=== PATIENT | male | born 1995 | race African-American/Black ===

== ENCOUNTER 2016-12-31 08:32 | Emergency (ER) | payer SELFPAY ==
[~2016-12-31] VITALS: Ht 172.7 cm; Wt 77.0 kg
[2016-12-31 10:26] VITALS: BP 124/70
== END 2016-12-31 10:29 | disposition home or self-care (01) ==
LOC: ER 09:01
DX: J06.9 Acute upper respiratory infection, unspecified (principal); F17.210 Nicotine dependence, cigarettes, uncomplicated; F12.10 Cannabis abuse, uncomplicated; Z98.890 Other specified postprocedural states
CPT/HCPCS: 99283

== ENCOUNTER 2021-07-15 20:19 | Emergency (ER) | payer SELFPAY ==
[~2021-07-15] VITALS: Ht 172.7 cm; Wt 79.0 kg
[2021-07-15 20:51] VITALS: BP 125/83
[2021-07-15] MEDS ORDERED: PIPERACILLIN/TAZ 3.375G PREMIX 50 ML IV ONE (21:45)
[2021-07-15] MEDS ORDERED: VANCOMYCIN 1G PREMIX 200 ML IV ONE (21:45)
[2021-07-15] MEDS ORDERED: AMOX-424 MT (22:06)
[2021-07-15] MEDS ORDERED: IBUPROFEN 600MG TABLET PO ONE (22:15)
== END 2021-07-15 22:20 | disposition left against medical advice (07) ==
LOC: ER 20:19
DX: L03.213 Periorbital cellulitis (principal); F12.10 Cannabis abuse, uncomplicated
CPT/HCPCS: 99281

== ENCOUNTER 2021-10-31 12:38 | Emergency (ER) | payer MEDICAID ==
[~2021-10-31] VITALS: Ht 167.6 cm; Wt 73.0 kg
[~2021-10-31 12:38] MED LIST: AMOX-424 MT
[2021-10-31] MEDS ORDERED: MORPHINE SULFATE 4 MG/ML CPJ (NOT FOR IM USE) IV ONE (12:45)
[2021-10-31] MEDS ORDERED: SODIUM CHLORIDE 0.9% 1,000 ML IV ONE ×2 (12:45)
[2021-10-31] MEDS ORDERED: TETANUS, DIPHTHERIA, PERTUSSIS VAC/PF 0.5ML (>10YR OLD) IM ONE (12:45)
[2021-10-31] MEDS ORDERED: ONDANSETRON HCL 4MG/2ML INJ IV ONE (13:00)
[2021-10-31 13:13] LABS: BASOPHILS % 0.4 % (0.0-2.0); EOSINOPHILS % 0.1 % (0.0-5.0); HEMATOCRIT. 33.7 % (42.0-52.0); HEMOGLOBIN. 11.4 g/dL (14.0-18.0); LYMPHOCYTES % 15.3 % (20.0-50.0); MEAN CORPUSCULAR HEMOGLOBIN 27.2 pg (28.0-32.0); MEAN CORPUSCULAR VOLUME 80.7 fL (80.0-94.0); MEAN PLATELET VOLUME 8.8 fl (7.4-10.4); MONOCYTES % 4.8 % (2.0-8.0); NEUTROPHILS % 79.4 % (40.0-76.0); PLATELET 184 x1000/uL (130-400); RED BLOOD CELL COUNT 4.18 mill/uL (4.7-6.1); RED CELL DISTRIBUTION WIDTH 16.9 % (11.6-14.6)
[2021-10-31 13:20] LABS: CHLORIDE 101 mEq/L (98-107)
[2021-10-31 13:24] LABS: PROTHROMBIN TIME 11.2 sec (9.6-11.0)
[2021-10-31 13:35] LABS: ETHANOL BLOOD < 10 mg/dL
[2021-10-31] MEDS ORDERED: HYDROMORPHONE HCL/PF 2MG/ML CPJ IV ONE ×2 (13:45)
[2021-10-31] MEDS ORDERED: MIDAZOLAM HCL 2 MG/2 ML VIAL IM ONE (13:45)
[2021-10-31] MEDS ORDERED: DIPHENHYDRAMINE 50MG/ML VIAL IV ONE (13:45)
[2021-10-31] MEDS ORDERED: HALOPERIDOL LACTATE 5MG/ML VIAL IM ONE (13:45)
[2021-10-31] MEDS ORDERED: LIDOCAINE HCL/EPINEPHRINE 1%-EPI 1:100,000 50 ML VIAL INFIL ONE (14:15)
[2021-10-31 15:33] LABS: CLARITY URINE CLEAR (CLEAR); COLOR URINE YELLOW (YELLOW); KETONES URINE NEGATIVE (NEGATIVE); LEUKOCYTE ESTERASE URINE NEGATIVE (NEGATIVE); NITRITE URINE NEGATIVE (NEGATIVE); OCCULT BLOOD URINE NEGATIVE (NEGATIVE); PH URINE 5.5 (4.5-8.0); PROTEIN URINE NEGATIVE (NEGATIVE); SPECIFIC GRAVITY URINE 1.012 (1.005-1.030)
[2021-10-31 15:43] LABS: *AMPHETAMINES SCREEN URINE NEGATIVE (NEGATIVE); *BARBITURATES SCREEN URINE NEGATIVE (NEGATIVE); *BENZODIAZEPINES SCREEN URINE PRESUMTIVE POSITIVE (NEGATIVE); *COCAINE SCREEN URINE NEGATIVE (NEGATIVE); CANNABINOID URINE SCREEN NEGATIVE (NEGATIVE); METHADONE URINE SCREEN NEGATIVE (NEGATIVE); OPIATES URINE SCREEN PRESUMTIVE POSITIVE (NEGATIVE); PHENCYCLIDINE URINE SCREEN NEGATIVE (NEGATIVE)
[2021-10-31 19:02] VITALS: BP 106/75
== END 2021-10-31 17:57 | disposition short-term general hospital (02) ==
LOC: ER 12:38
DX: S21.212A Laceration without foreign body of left back wall of thorax without penetration into thoracic cavity, initial encounter (principal); S21.211A Laceration without foreign body of right back wall of thorax without penetration into thoracic cavity, initial encounter; S27.2XXA Traumatic hemopneumothorax, initial encounter; S00.83XA Contusion of other part of head, initial encounter; S52.692A Other fracture of lower end of left ulna, initial encounter for closed fracture; F17.210 Nicotine dependence, cigarettes, uncomplicated; Z21 Asymptomatic human immunodeficiency virus [HIV] infection status; Z20.822 Contact with and (suspected) exposure to COVID-19; X99.8XXA Assault by other sharp object, initial encounter; Y93.89 Activity, other specified; Y92.89 Other specified places as the place of occurrence of the external cause
CPT/HCPCS: 29125; 36415; 70450; 70486; 71045; 71250; 73090; 74176; 80053; 80305; 80320; 81003; 83690; 85025; 85610; 85730; 86850; 86900; 86901; 87426; 90715; 96361; 96372; 96374; 96375; 99291; C9803; J1170; J1200; J1630; J2250; J2270; J2405; J7030; G0480

== ENCOUNTER 2021-11-22 11:34 | Emergency (ER) | payer MEDICAID, OTHER ==
[~2021-11-22] VITALS: Ht 172.7 cm; Wt 77.0 kg
[2021-11-22 11:36] VITALS: BP 124/68
== END 2021-11-22 13:57 ==
LOC: ER 11:34
DX: S52.602A Unspecified fracture of lower end of left ulna, initial encounter for closed fracture (principal); Z21 Asymptomatic human immunodeficiency virus [HIV] infection status; Z90.89 Acquired absence of other organs; X58.XXXA Exposure to other specified factors, initial encounter; Y93.89 Activity, other specified; Y92.89 Other specified places as the place of occurrence of the external cause
CPT/HCPCS: 73110; 99283

== ENCOUNTER 2022-07-31 06:15 | Emergency (ER) | payer SELFPAY ==
[~2022-07-31] VITALS: Ht 172.7 cm; Wt 77.0 kg
[2022-07-31 06:24] VITALS: BP 124/67
[2022-07-31] MEDS ORDERED: ACETAMINOPHEN 325MG TABLET PO ONE (07:30)
[2022-07-31] MEDS ORDERED: LIDOCAINE HCL/PF 1% 10 MG/ML 5ML VIAL INFIL ONE (07:30)
[2022-07-31] MEDS ORDERED: TOPUD PO (08:30)
== END 2022-07-31 08:44 ==
LOC: ER 06:15
DX: S41.012A Laceration without foreign body of left shoulder, initial encounter (principal); X58.XXXA Exposure to other specified factors, initial encounter; Y93.89 Activity, other specified; Y92.89 Other specified places as the place of occurrence of the external cause; Y99.8 Other external cause status
CPT/HCPCS: 12001; 71045; 99283; Z7610

== ENCOUNTER 2022-08-04 09:30 | Emergency (ER) | payer OTHER ==
[~2022-08-04] VITALS: Ht 172.7 cm; Wt 80.0 kg
[~2022-08-04 09:30] MED LIST changes: +TOPUD PO
[2022-08-04 09:36] VITALS: BP 121/78
== END 2022-08-04 10:13 ==
LOC: ER 09:42
DX: T75.4XXA Electrocution, initial encounter (principal); X58.XXXA Exposure to other specified factors, initial encounter; Z87.891 Personal history of nicotine dependence
CPT/HCPCS: 99283